=== PATIENT | female | born 1960 | race Caucasian/White ===

== ENCOUNTER 2022-09-17 09:09 | Inpatient (IN) | payer MEDICARE, MEDICAID ==
[~2022-09-17] VITALS: Ht 157.5 cm; Wt 95.3 kg
[2022-09-27 09:33] VITALS: BP 151/96; PULSE 106; TEMP 98.7
[2022-09-27 10:13] LABS: BASO # 0.1 K/mm3 (0.0-0.2); BASO % 0.8 % (0.0-2.0); EOS # 0.1 K/mm3 (0.0-0.7); EOS % 1.2 % (0.0-4.0); GRAN # 4.1 K/mm3 (1.4-6.5); GRAN % 68.7 % (42.2-75.2); HEMATOCRIT 38.6 % (37.0-47.0); HEMOGLOBIN 13.6 g/dl (12.5-16.0); LYMPH # 1.2 K/mm3 (1.2-3.4); LYMPH % 19.5 % (20.0-51.0); MEAN CELL VOLUME 85 fl (80.0-100.0); MEAN CORPUSCULAR HEMOGLOBIN 30 pg (27-31); MEAN CORPUSCULAR HGB CONC 35 g/dl (33.0-37.0); MEAN PLATELET VOLUME 11.8 fl (7.4-10.4); MONO # 0.6 K/mm3 (0.1-0.6); MONO % 9.5 % (1.7-9.3); PLATELET COUNT 246 K/mm3 (130-400); RED BLOOD COUNT 4.55 M/mm3 (4.10-5.30); REDCELL DISTRIBUTION WIDTH-CV 12.3 % (11.5-14.5)
[2022-09-27 10:25] LABS: INR 1.5 (0.8-3.0); PROTHROMBIN TIME 17.2 SECONDS (9.7-12.8)
[2022-09-27] MEDS ORDERED: EPIPEN 2-PAK1 MG/ML IM (10:29)
[2022-09-27] MEDS ORDERED: LIORESAL 1010 MG/TAB PO (10:30)
[2022-09-27] MEDS ORDERED: CYTOTEC 10100 MCG/TA PO (10:31)
[2022-09-27 10:32] LABS: ALBUMIN 3.5 gm/dL (3.4-4.8); BILIRUBIN,TOTAL 0.8 mg/dL (0.2-1.2); CALCIUM 9.4 mg/dL (8.4-10.2); CREATININE, serum 0.93 mg/dL (0.57-1.11); MAGNESIUM 2.1 mg/dL (1.6-2.6); POTASSIUM 3.1 mmol/L (3.5-4.5); TOTAL PROTEIN 6.1 gm/dL (6.2-8.1)
[2022-09-27] MEDS ORDERED: PROAIR HFA0.09 MG/AC IH (10:32)
[2022-09-27] MEDS ORDERED: AMBIEN 5MG TABLE5 MG PO (10:33)
[2022-09-27] MEDS ORDERED: MULTI VITAMINS1 TAB PO (10:34)
[2022-09-27] MEDS ORDERED: VITAMIN D362.5 MC1 PO (11:04)
[2022-09-27] MEDS ORDERED: B-12 500 MCG PO (11:05)
[2022-09-27] MEDS ORDERED: VITAMIN C500 MG PO (11:06)
[2022-09-27] MEDS ORDERED: FERRO-TIME325 MG PO (11:08)
[2022-09-27] MEDS ORDERED: ELEMENTAL IRON PO (11:12)
[2022-09-27] MEDS ORDERED: ELIQUIS 5MG PO (11:12)
--- NOTE | 2022-09-27 11:43 | NUR ---
Patient admitted to room 317 from home. Pharmacy, allergies, and medications reviewed. VSS. Patient A&O. Tele orders recieved and monitor placed on patient. 20 gauge IV placed in patient's Left AC. Admission paperwork completed. Patient is currently resting in bed. Denies any pain, discomfort, SOA, or further needs at this time. Call light in reach.
[2022-09-27 12:00] VITALS: PULSE 109
[2022-09-27 15:17] VITALS: BP 129/82; PULSE 106; TEMP 98
--- NOTE | 2022-09-27 18:00 | NUR ---
Patient has had an ok day. VSS. Patient A&O. Verbal order for potassium replacement received from [facility], order placed as recieved. Patient currenlty resting in bed. Denies any pain, discomfort, or further needs at this time. Call light in reach. Tele in use.
[2022-09-27 19:35] VITALS: BP 127/91; PULSE 97; TEMP 98.3
--- NOTE | 2022-09-27 21:00 | NUR ---
Initial shift assessment done- Tele on- afib rate 100-110, Up in room, steady on feet, denies SOB/denies chest pain. VSS.
[2022-09-27 23:13] VITALS: BP 130/90; PULSE 113; TEMP 97.8
[2022-09-28 05:28] VITALS: BP 137/75; PULSE 97; TEMP 98.8
--- NOTE | 2022-09-28 05:47 | NUR ---
Quiet night- Tele on- remains in afib with rates around 85-110 during the night. VSS
[2022-09-28 06:56] LABS: CALCIUM 9.4 mg/dL (8.4-10.2); CREATININE, serum 0.89 mg/dL (0.57-1.11); MAGNESIUM 2.3 mg/dL (1.6-2.6); POTASSIUM 3.4 mmol/L (3.5-4.5)
[2022-09-28 06:58] LABS: BASO # 0.1 K/mm3 (0.0-0.2); BASO % 1.2 % (0.0-2.0); EOS # 0.1 K/mm3 (0.0-0.7); EOS % 1.9 % (0.0-4.0); GRAN # 3.5 K/mm3 (1.4-6.5); GRAN % 60.8 % (42.2-75.2); HEMATOCRIT 39.8 % (37.0-47.0); HEMOGLOBIN 14.1 g/dl (12.5-16.0); LYMPH # 1.4 K/mm3 (1.2-3.4); LYMPH % 24.3 % (20.0-51.0); MEAN CELL VOLUME 86 fl (80.0-100.0); MEAN CORPUSCULAR HEMOGLOBIN 30 pg (27-31); MEAN CORPUSCULAR HGB CONC 35 g/dl (33.0-37.0); MONO # 0.7 K/mm3 (0.1-0.6); MONO % 11.5 % (1.7-9.3); PLATELET COUNT 257 K/mm3 (130-400); RED BLOOD COUNT 4.65 M/mm3 (4.10-5.30); REDCELL DISTRIBUTION WIDTH-CV 12.2 % (11.5-14.5)
[2022-09-28 07:12] VITALS: BP 125/79; PULSE 94; TEMP 97.6
[2022-09-28 11:06] VITALS: BP 128/84; PULSE 85; TEMP 97.5
--- NOTE | 2022-09-28 12:10 | NUR ---
Initial visit: Pt was sitting in her chair resting with her mom and daughter visiting. Pt has no needs right now. [employer] Worker will follow up as needed.
--- NOTE | 2022-09-28 14:25 | NUR ---
Health And Wellness Coach met with patient to discuss discharge planning. 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 Patient sees Dr. Villa for primary care [facility]. Patient uses a CPAP at home and also reported that she has a cane and walker, but does not normally need them. Patient is independent with all ADLS and stated she "does it all". Patient does not currently have DPOA-HC but was interested in obtaining the form to take home. SW provided the form along with education on how to complete it. Patient is not and has no children. Next of kin would be her mother, Jessenia who patient is a caregiver for so SW stressed the importance of advance planning. Patient stated she will likely designate her brother, Wilbreto. Patient's sister from [place] is currently in town staying with Jessenia while patient is in the hospital. Patient plans to return home at time of discharge. Discharge Plan: Home
[2022-09-28 15:31] VITALS: BP 138/94; PULSE 108; TEMP 98.2
[2022-09-28 19:55] VITALS: BP 119/78; PULSE 124; TEMP 97.6
[2022-09-29] VITALS (8 sets, daily range): BP systolic 97–123; BP diastolic 60–78; PULSE 52–125; TEMP 98–98.8
[2022-09-29 07:01] LABS: BASO # 0.1 K/mm3 (0.0-0.2); BASO % 1.1 % (0.0-2.0); EOS # 0.1 K/mm3 (0.0-0.7); EOS % 1.3 % (0.0-4.0); GRAN # 3.7 K/mm3 (1.4-6.5); GRAN % 58.5 % (42.2-75.2); HEMATOCRIT 41.7 % (37.0-47.0); HEMOGLOBIN 14.3 g/dl (12.5-16.0); LYMPH # 1.7 K/mm3 (1.2-3.4); LYMPH % 27.1 % (20.0-51.0); MEAN CELL VOLUME 88 fl (80.0-100.0); MEAN CORPUSCULAR HEMOGLOBIN 30 pg (27-31); MEAN CORPUSCULAR HGB CONC 34 g/dl (33.0-37.0); MEAN PLATELET VOLUME 12.1 fl (7.4-10.4); MONO # 0.8 K/mm3 (0.1-0.6); MONO % 11.8 % (1.7-9.3); PLATELET COUNT 278 K/mm3 (130-400); RED BLOOD COUNT 4.72 M/mm3 (4.10-5.30); REDCELL DISTRIBUTION WIDTH-CV 12.3 % (11.5-14.5)
[2022-09-29 07:16] LABS: CALCIUM 9.3 mg/dL (8.4-10.2); CREATININE, serum 0.99 mg/dL (0.57-1.11); MAGNESIUM 2.2 mg/dL (1.6-2.6); POTASSIUM 3.9 mmol/L (3.5-4.5)
[2022-09-29] MEDS ORDERED: BETAPACE 80MG80 MG PO (12:54)
== END 2022-09-29 14:00 | disposition home or self-care (01) | DRG 262 ==
LOC: MEDICAL 09-27 08:39 → SURG 09-27 09:08 → MEDICAL 09-29 14:00
PROVIDERS: ADMIT Internal Medicine Cardiovascular Disease
PROC: 0JH632Z Insertion of Monitoring Device into Chest Subcutaneous Tissue and Fascia, Percutaneous Approach (ICD-10-PCS; principal; 2022-09-29)
PROC: 5A2204Z Restoration of Cardiac Rhythm, Single (ICD-10-PCS; 2022-09-29)
DX: I48.91 Unspecified atrial fibrillation (principal); I34.0 Nonrheumatic mitral (valve) insufficiency; I10 Essential (primary) hypertension; G89.29 Other chronic pain; E11.9 Type 2 diabetes mellitus without complications; M19.90 Unspecified osteoarthritis, unspecified site; K21.9 Gastro-esophageal reflux disease without esophagitis; G47.33 Obstructive sleep apnea (adult) (pediatric); J45.909 Unspecified asthma, uncomplicated; Z88.6 Allergy status to analgesic agent; Z88.1 Allergy status to other antibiotic agents; Z91.012 Allergy to eggs; Z88.5 Allergy status to narcotic agent; Z88.0 Allergy status to penicillin; Z88.2 Allergy status to sulfonamides; Z88.7 Allergy status to serum and vaccine; Z88.8 Allergy status to other drugs, medicaments and biological substances; Z91.048 Other nonmedicinal substance allergy status
CPT/HCPCS: C1764; J2704